=== PATIENT | female | born 2005 | race Caucasian/White ===

== ENCOUNTER 2023-05-29 11:58 | Emergency (ER) | payer BC, MEDICAID, SELFPAY ==
[2023-05-29 12:00] VITALS: BP 130/70; PULSE 90; RESP 16; TEMP 36.5; O2SAT 99
[2023-05-29 12:29] LABS: Appearance Urine Turbid (Clear); Bacteria Urine Rare /hpf; Bilirubin Urine Negative (Negative); Blood Urine 3+ (Negative); Color Urine Dark Yellow (Yellow); Glucose Urine UA Negative (Negative); Ketones Urine Trace mg/dL (Negative); Leukocyte Esterase Ur 2+ LEU/UL (Negative); Nitrate Urine Negative (Negative); Non Pathogenic Casts 0-2; Protein Urine 2+ mg/dL (Negative); RBC Urine >100 /hpf (0-2); Squamous Epithelial Cell Urine Few /hpf (Few); WBC Urine >100 /hpf; pH Urine 6.5 (5.0-9.0)
[2023-05-29 12:38] LABS: Add Urine Microscopic? YES
[2023-05-29] MEDS: SODIUM CHLORIDE 0.9% IV 1,000 ML 999 ML IV CONT (14:18)
[2023-05-29 14:25] LABS: Basophils Percent Auto 0.3 % (0.2-1.2); Eosinophils Absolute Auto 0.1 K/mm3 (0-0.3); Eosinophils Percent Auto 0.5 % (0-4.4); Hematocrit 40.5 % (37.0-47.0); Immature Granulocyte Absolute 0.02 K/mm3 (0.00-0.031); Immature Granulocyte Percent A 0.2 % (0-0.5); Lymphocytes Absolute Auto 1.68 K/mm3 (0.9-3.2); Lymphocytes Percent Auto 18.4 % (18.3-44.2); Mean Corpuscular HGB Conc 32.1 g/dl (32-36); Mean Corpuscular Hemoglobin 28.2 pg (26-34); Mean Corpuscular Volume 87.9 fl (80-100); Mean Platelet Volume 9.6 fl (7.4-10.4); Monocytes Absolute Auto 0.5 K/mm3 (0.1-0.6); Monocytes Percent Auto 5.5 % (2.6-8.5); Neutrophils Absolute Auto 6.9 K/mm3 (1.3-6.7); Neutrophils Percent Auto 75.1 % (45.5-73.1); Platelet Count Result 288 k/mm3 (150-375); Red Blood Count 4.61 M/mm3 (4.2-5.4); Red Cell Distribution Width 13.7 % (11.5-14.5); White Blood Count 9.1 K/mm3 (4.5-10.0)
[2023-05-29 14:46] LABS: Alanine Aminotransferase 15 U/L (6-35); Albumin Level 4.2 g/dL (3.7-5.6); Alkaline Phosphatase 118 U/L (45-116); Anion Gap 6 mmol/L (8-16); Aspartate Amino Transferase 28 U/L (14-36); Bilirubin,Total 0.6 mg/dL (0.2-1.3); Blood Urea Nitrogen 14 mg/dL (8-21); Calcium 9.2 mg/dL (8.9-10.7); Carbon Dioxide 23 mmol/L (22-30); Chloride 110 mmol/L (98-107); Estimated CRCL calculation 105 ml/min; Estimated Glomerular Filt Rate > 60; Glucose 95 mg/dL (65-110); Lipase 66 U/L (23-300); Potassium 4.4 mmol/L (3.4-5.0); Sodium 139 mmol/L (134-143)
--- NOTE | 2023-05-29 15:20 | ED.ABDPAIN ---
HPI - Abdominal Pain General Chief Complaint: Abdominal Pain Stated Complaint: severe abd pain Time Seen by Provider: 05/29/23 13:02 History of Present Illness HPI narrative: 17-year-old female presenting to the emergency for evaluation burning with urination. Patient states symptoms started a few days ago. Patient also does report intermittent upper abdominal pain associated with eating. Patient reports intermittent lower abdominal pain associated with intercourse. Related Data Allergies Allergy/AdvReac Type Severity Reaction Status Date / Time No Known Allergies Allergy Verified 05/29/23 11:59 Review of Systems Review of Systems: All systems reviewed & are unremarkable except as noted in HPI and below Exam Narrative: APPEARANCE: Well appearing, no pain, no distress, well-nourished. HEAD: normocephalic, atraumatic. EYES: PERRLA/EOMI, conjunctivae clear. NOSE: Normal no drainage EARS:TMS clear with good light reflex. THROAT: Pharynx clear, no exudate. NECK: Supple. No adenopathy, no masses. RESPIRATORY: Airway patent, respirations nonlabored. Clear to auscultation bilaterally, no rales, rhonchi, wheezing. CARDIOVASCULAR: Regular rate and rhythm without murmurs rubs or gallops. ABDOMINAL: Suprapubic tenderness to palpation MUSCULOSKELETAL: Moves all extremities. Strength/ROM intact, No edema, No calf tenderness. NEURO: Alert. Cranial nerves II through XII intact. Grossly intact SKIN: Warm, dry. Normal Color Course Course Emergency Course: Patient was treated for urinary tract infection and patient was comfortable with the plan for discharge home Vital Signs Vital signs: Vital Signs Temperature 97.7 F 05/29/23 12:00 Pulse Rate 90 05/29/23 12:00 Respiratory Rate 16 05/29/23 12:00 Blood Pressure 130/70 05/29/23 12:00 Pulse Oximetry 99 05/29/23 12:00 Oxygen Delivery Room Air 05/29/23 12:00 Temperature 97.7 F 05/29/23 12:00 Pulse Rate 90 05/29/23 12:00 Respiratory Rate 16 05/29/23 12:00 Blood Pressure 130/70 05/29/23 12:00 Pulse Oximetry 99 05/29/23 12:00 Oxygen Delivery Room Air 05/29/23 12:00 MDM - Abdominal Pain MDM Narrative Medical decision making narrative: 17-year-old female presenting to the ED for evaluation of burning with urination. Patient is afebrile with no leukocytosis and a stable hemoglobin of 13. No acute abnormalities on the CMP. UA is concerning for urinary tract infection. Patient was treated with IV fluids and IV Rocephin. Patient did feel improved after the rehydration. Patient was updated on results of her workup. All questions concerns were addressed patient was comfortable with the plan for discharge and close follow-up. Patient was advised to decrease her ibuprofen intake since she is also describing symptoms gastritis. Patient was encouraged close follow-up with GI. Differential Diagnosis Differential diagnosis: Likely abdominal pain, acute appendicitis, calculus of kidney, diverticulitis, gastroenteritis, pancreatitis and small bowel obstruction Lab Data Attestation: I reviewed the patient's lab results. 05/29/23 14:20 05/29/23 14:20 Labs: Lab Results 05/29/23 05/29/23 Range/Units 12:14 14:20 WBC 9.1 (4.5-10.0) K/mm3 RBC 4.61 (4.2-5.4) M/mm3 Hgb 13.0 (12.0-15.0) g/dL Hct 40.5 (37.0-47.0) % MCV 87.9 (80-100) fl MCH 28.2 (26-34) pg MCHC 32.1 (32-36) g/dl RDW 13.7 (11.5-14.5) % Plt Count 288 (150-375) k/mm3 MPV 9.6 (7.4-10.4) fl Immature Gran % (Auto) 0.2 (0-0.5) % Neut % (Auto) 75.1 H (45.5-73.1) % Lymph % (Auto) 18.4 (18.3-44.2) % [place] % (Auto) 5.5 (2.6-8.5) % Eos % (Auto) 0.5 (0-4.4) % Baso % (Auto) 0.3 (0.2-1.2) % Lymph # (Auto) 1.68 (0.9-3.2) K/mm3 [place] # (Auto) 0.5 (0.1-0.6) K/mm3 Eos # (Auto) 0.1 (0-0.3) K/mm3 Baso # (Auto) 0.0 (0.0-0.1) K/mm3 Abs Immat Gran (auto) 0.02 (0.00-0.031) K/mm3 Absolute
[2023-05-29] MEDS: PANTOPRAZOLE SODIUM IV 40 MG VIAL IV PUSH (15:31)
[2023-05-29] MEDS: PHENAZOPYRIDINE HCL 100 MG TABLET 200 MG PO (15:31)
== END 2023-05-29 15:37 | disposition home or self-care (01) ==
PROVIDERS: Emergency Provider Emergency Medicine
DX: N39.0 Urinary tract infection, site not specified (principal); K29.70 Gastritis, unspecified, without bleeding
CPT/HCPCS: 36415; 80053; 81001; 81025; 83690; 85025; 87077; 87086; 87186; 96361; 96365; 96375; 99284; A9270; C9113; J0696; J7030

== ENCOUNTER 2023-08-15 17:44 | Emergency (ER) | payer BC, SELFPAY ==
[2023-08-15] VITALS (8 sets, daily range): BP systolic 118–127; BP diastolic 77–88; PULSE 68–88; RESP 12–20; O2SAT 97–100
[2023-08-15 18:11] LABS: Appearance Urine Clear (Clear); Bilirubin Urine Negative (Negative); Blood Urine Negative (Negative); Color Urine Yellow (Yellow); Glucose Urine UA Negative (Negative); Ketones Urine Negative (Negative); Leukocyte Esterase Ur Negative LEU/UL (Negative); Nitrate Urine Negative (Negative); Protein Urine Negative (Negative); Specific Grav Ur 1.018 (1.001-1.035); pH Urine 7.5 (5.0-9.0)
[2023-08-15 18:15] LABS: Add Urine Microscopic? NO
--- NOTE | 2023-08-15 18:55 | ED.ABDPAIN ---
HPI - Abdominal Pain General Chief Complaint: Abdominal Pain Stated Complaint: abd pain Time Seen by Provider: 08/15/23 18:09 History of Present Illness HPI narrative: 18-year-old female with no past medical history presents to emergency department for intermittent abdominal cramping for approximately 2 months. Patient was evaluated in our emergency department for the same symptoms on 05/29/2023. She was found have urinary tract infection at that time and was started on antibiotics. She also he was started on omeprazole for gastritis like symptoms. Patient states she has been taking omeprazole without improvement. She states the pain is intermittent and sometimes in her upper abdomen and sometimes in her lower abdomen. She is unable to identify any aggravating or alleviating factors. She reports 1 episode of nausea and vomiting 1 week ago and some intermittent loose stools. Her last bowel movement was today and normal. She denies prior abdominal surgeries, obstipation, fever, dysuria or hematuria. LMP unknown given she is on the Depo shot. Upon my evaluation the patient states she has no pain or discomfort. Related Data Allergies Allergy/AdvReac Type Severity Reaction Status Date / Time No Known Allergies Allergy Verified 05/29/23 11:59 Review of Systems Review of Systems: CONSTITUTIONAL: Denies fever, chills, or sweats. EYES: Denies visual changes, redness, or discharge. ENT: Denies rhinorrhea, congestion, sore throat, or otalgia. CARDIOVASCULAR: Denies chest pain, palpitations, or edema. RESPIRATORY: Denies cough or dyspnea. GASTROINTESTINAL: See HPI GENITOURINARY: Denies dysuria or hematuria. SKIN: Denies rash or itching. MUSCULOSKELETAL: Denies back pain, joint pain, or myalgia. NEUROLOGIC: Denies headache, numbness, or weakness. PSYCHIATRIC: Denies anxiety or depression. Exam Narrative: GENERAL: Well-appearing, well-nourished, and in no acute distress. HEAD: Normocephalic, atraumatic. EYES: PERRLA and EOMI. ENT: Nares clear, no rhinorrhea or epistaxis. Mucous membranes moist. NECK: Supple. CHEST: Clear to auscultation. No respiratory distress. HEART: Regular rate and rhythm. No murmur heard. Normal peripheral pulses. ABDOMEN: Soft, nontender, nondistended, normal active bowel sounds. No rebound, guarding or rigidity. No CVA tenderness. EXTREMITIES: Normal range of motion. No edema. SKIN: Warm, dry, no rash. NEURO: No focal deficits. Alert and oriented x3 Course Vital Signs Vital signs: Vital Signs Pulse Rate 86 08/15/23 18:03 Respiratory Rate 18 08/15/23 18:03 Pulse Oximetry 100 08/15/23 18:03 Pulse Rate 88 08/15/23 19:01 Respiratory Rate 13 08/15/23 19:01 Blood Pressure 121/88 08/15/23 19:01 Pulse Oximetry 100 08/15/23 19:01 MDM - Abdominal Pain MDM Narrative Medical decision making narrative: 18-year-old female presents emergency department for intermittent abdominal cramping for approximately 2 months. Triage vitals stable. Patient is afebrile and nontoxic appearing. Abdomen is soft and nontender. She currently is not having any symptoms. Lab work obtained in triage reveals a negative test, normal urinalysis. CBC without leukocytosis. Chemistries unremarkable. Lipase is normal. On re-evaluation patient is resting comfortably in the exam bed and continues to be asymptomatic. Feel she is safe to be discharged home with PCP follow-up. Strict ED return precautions discussed. She is agreeable to plan verbalized understanding. Discharged in stable condition. Lab Data 08/15/23 19:21 08/15/23 19:21 Labs: Lab Results 08/15/23 08/15/23 Range/Units 18:04 19:21 WBC 5.9 (4.5-10.0) K/mm3 RBC 4.83 (4.2-5.4) M/mm3 Hgb 13.6 (12.0-15.0) g/dL Hct 42.1 (37.0-47.0) % MCV 87.2 (80-100) fl MCH 28.2 (26-34) pg MCHC 32.3 (32-36) g/dl RDW 13.2 (11.5-14.5) % Plt Count 327 (150-375) k/mm3
--- NOTE | 2023-08-15 19:13 | PC.NURSE ---
Report given to Valerie CARBALLO, all questions answered
[2023-08-15 19:31] LABS: Basophils Percent Auto 0.7 % (0.2-1.2); Eosinophils Absolute Auto 0.2 K/mm3 (0-0.3); Eosinophils Percent Auto 2.6 % (0-4.4); Hematocrit 42.1 % (37.0-47.0); Hemoglobin 13.6 g/dL (12.0-15.0); Immature Granulocyte Absolute 0.02 K/mm3 (0.00-0.031); Immature Granulocyte Percent A 0.3 % (0-0.5); Lymphocytes Absolute Auto 2.42 K/mm3 (0.9-3.2); Lymphocytes Percent Auto 41.2 % (18.3-44.2); Mean Corpuscular HGB Conc 32.3 g/dl (32-36); Mean Corpuscular Hemoglobin 28.2 pg (26-34); Mean Corpuscular Volume 87.2 fl (80-100); Mean Platelet Volume 9.6 fl (7.4-10.4); Monocytes Absolute Auto 0.4 K/mm3 (0.1-0.6); Neutrophils Absolute Auto 2.9 K/mm3 (1.3-6.7); Neutrophils Percent Auto 49.2 % (45.5-73.1); Platelet Count Result 327 k/mm3 (150-375); Red Blood Count 4.83 M/mm3 (4.2-5.4); Red Cell Distribution Width 13.2 % (11.5-14.5); White Blood Count 5.9 K/mm3 (4.5-10.0)
[2023-08-15 19:41] LABS: Alanine Aminotransferase 16 U/L (6-35); Albumin Level 4.5 g/dL (3.5-5.1); Alkaline Phosphatase 127 U/L (38-126); Anion Gap 9 mmol/L (4-12); Aspartate Amino Transferase 26 U/L (14-36); Bilirubin,Total 0.5 mg/dL (0.2-1.3); Blood Urea Nitrogen 10 mg/dL (7-17); Calcium 9.4 mg/dL (8.4-10.2); Carbon Dioxide 23 mmol/L (22-30); Chloride 108 mmol/L (98-107); Estimated CRCL calculation 94 ml/min; Estimated Glomerular Filt Rate > 60; Glucose 79 mg/dL (65-110); Lipase 75 U/L (23-300); Potassium 3.7 mmol/L (3.4-5.0); Sodium 140 mmol/L (137-145)
== END 2023-08-15 20:32 | disposition home or self-care (01) ==
PROVIDERS: Emergency Medicine; Emergency Provider Physician Assistant
DX: R10.9 Unspecified abdominal pain (principal)
CPT/HCPCS: 36415; 80053; 81003; 81025; 83690; 85025; 99283

== ENCOUNTER 2024-07-13 13:36 | Emergency (ER) | payer BC, SELFPAY ==
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
[2024-07-13 13:43] VITALS: BP 117/72; PULSE 87; RESP 16; TEMP 36.2; O2SAT 100
[2024-07-13 15:10] LABS: Basophils Percent Auto 0.6 % (0.2-1.2); Eosinophils Absolute Auto 0.2 K/mm3 (0-0.3); Eosinophils Percent Auto 3.6 % (0-4.4); Hematocrit 44.6 % (37.0-47.0); Hemoglobin 14.4 g/dL (12.0-15.0); Immature Granulocyte Absolute 0.01 K/mm3 (0.00-0.031); Immature Granulocyte Percent A 0.2 % (0-0.5); Lymphocytes Absolute Auto 1.76 K/mm3 (0.9-3.2); Lymphocytes Percent Auto 37.4 % (18.3-44.2); Mean Corpuscular HGB Conc 32.3 g/dl (32-36); Mean Corpuscular Hemoglobin 28.1 pg (26-34); Mean Corpuscular Volume 86.9 fl (80-100); Mean Platelet Volume 9.9 fl (7.4-10.4); Monocytes Absolute Auto 0.2 K/mm3 (0.1-0.6); Monocytes Percent Auto 3.2 % (2.6-8.5); Neutrophils Absolute Auto 2.6 K/mm3 (1.3-6.7); Platelet Count Result 362 k/mm3 (150-375); Red Blood Count 5.13 M/mm3 (4.2-5.4); Red Cell Distribution Width 13.9 % (11.5-14.5); White Blood Count 4.7 K/mm3 (4.5-10.0)
[2024-07-13 15:15] LABS: BEDSIDEPREGUCG Negative (Negative)
[2024-07-13 15:22] LABS: Alanine Aminotransferase 21 U/L (6-35); Albumin Level 4.9 g/dL (3.5-5.1); Alkaline Phosphatase 130 U/L (38-126); Anion Gap 13 mmol/L (4-12); Aspartate Amino Transferase 27 U/L (14-36); Bilirubin,Total 0.7 mg/dL (0.2-1.3); Blood Urea Nitrogen 4 mg/dL (7-17); Calcium 9.7 mg/dL (8.4-10.2); Carbon Dioxide 22 mmol/L (22-30); Chloride 106 mmol/L (98-107); Estimated CRCL calculation 106 ml/min; Estimated Glomerular Filt Rate > 60; Glucose 83 mg/dL (65-110); Lipase 45 U/L (23-300); Potassium 3.7 mmol/L (3.4-5.0); Sodium 141 mmol/L (137-145)
[2024-07-13 15:26] LABS: Add Urine Microscopic? YES; Appearance Urine Cloudy (Clear); Bacteria Urine 2+ /hpf; Bilirubin Urine Negative (Negative); Blood Urine Negative (Negative); Color Urine Yellow (Yellow); Glucose Urine UA Negative (Negative); Ketones Urine Negative (Negative); Leukocyte Esterase Ur Trace LEU/UL (Negative); Need Manual Microscopic Reviewed; Nitrate Urine Negative (Negative); Non Pathogenic Casts 0-2; Protein Urine Trace mg/dL (Negative); RBC Urine 0-2 /hpf (0-2); Specific Grav Ur 1.027 (1.001-1.035); Squamous Epithelial Cell Urine Moderate /hpf (Few); WBC Urine 21-50 /hpf (0-3)
[2024-07-13] MEDS: SODIUM CHLORIDE 0.9% IV 2,000 ML 999 ML IV CONT (15:43)
[2024-07-13] MEDS: ONDANSETRON INJ 4 MG/2 ML VIAL IV PUSH (15:44)
[2024-07-13 15:46] LABS: Influenza A QL RT-PCR Negative (Negative); Influenza B QL RT-PCR Negative (Negative); RSV RNA, RT-PCR Negative (Negative); SARS-CoV-2 RNA PCR Negative (Negative)
[2024-07-13 15:56] LABS: Thyroid Stimulating Hormone Reflex 0.989 uIU/mL (0.465-4.68)
[2024-07-13] MEDS: KETOROLAC 15 MG/ML VIAL (*BKC) IV PUSH (16:03)
--- NOTE | 2024-07-13 16:11 | ED.GENADULT ---
HPI - General Adult General Chief complaint: Nausea/Vomiting/Diarrhea Stated complaint: Abdominal pain, N/V/D, headache Time Seen by Provider: 07/13/24 14:32 History of Present Illness HPI narrative: This is a 19-year-old female presenting with lower abdominal pain, nausea diarrhea and headaches. Patient says that she has not had a period in 7 years due to being on Depo-Provera. She had her 1st. At last week which was the start of her symptoms. The bleeding has since resolved but she has continued to have bad abdominal cramps which are causing her to have headaches and nausea. Patient denies fevers chills chest pain difficulty breathing or urinary symptoms. Related Data Allergies Allergy/AdvReac Type Severity Reaction Status Date / Time No Known Allergies Allergy Verified 07/13/24 13:37 Exam Narrative: APPEARANCE: No apparent distress. Head: atraumatic. EYES: EOMI, NOSE: Atraumatic NECK: Trachea midline RESPIRATORY: No increased rate of breathing clear auscultation CARDIOVASCULAR: RRR, no peripheral edema ABDOMINAL: Non-distended, soft nontender no guarding rebound, no CVA tenderness MUSCULOSKELETAl: No obvious deformities NEURO: Alert. Moving 4/4 extremities SKIN:: Warm, dry. Normal color PSYCHIATRIC: Normal affect Course Vital Signs Vital signs: Vital Signs Temperature 97.2 F L 07/13/24 13:43 Pulse Rate 87 07/13/24 13:43 Respiratory Rate 16 07/13/24 13:43 Blood Pressure 117/72 07/13/24 13:43 Pulse Oximetry 100 07/13/24 13:43 Temperature 97.2 F L 07/13/24 13:43 Pulse Rate 87 07/13/24 13:43 Respiratory Rate 16 07/13/24 13:43 Blood Pressure 117/72 07/13/24 13:43 Pulse Oximetry 100 07/13/24 13:[address] [facility] Narrative Medical decision making narrative: -Course: 19-year-old female presenting with abdominal cramps headache and nausea after starting her period for the 1st time in several years. Physical exam is unremarkable vital signs are stable. Patient is given Toradol and Zofran with improvement. Urine was indicative infection and she has noted increased urinary frequency. She will be treated with a course of cephalexin. Patient has been instructed to follow-up with her OBGYN for further management. -DDX includes but is not limited to: Menstrual cramps, gastroenteritis, urinary tract infection Vital Signs Vital Signs: Vital Signs Temperature 97.2 F L 07/13/24 13:43 Pulse Rate 87 07/13/24 13:43 Respiratory Rate 16 07/13/24 13:43 Blood Pressure 117/72 07/13/24 13:43 Pulse Oximetry 100 07/13/24 13:43 Temperature 97.2 F L 07/13/24 13:43 Pulse Rate 87 07/13/24 13:43 Respiratory Rate 16 07/13/24 13:43 Blood Pressure 117/72 07/13/24 13:43 Pulse Oximetry 100 07/13/24 13:43 Lab Data 07/13/24 15:01 07/13/24 15:01 Labs: Lab Results 07/13/24 07/13/24 Range/Units 15:01 15:12 WBC 4.7 (4.5-10.0) K/mm3 RBC 5.13 (4.2-5.4) M/mm3 Hgb 14.4 (12.0-15.0) g/dL Hct 44.6 (37.0-47.0) % MCV 86.9 (80-100) fl MCH 28.1 (26-34) pg MCHC 32.3 (32-36) g/dl RDW 13.9 (11.5-14.5) % Plt Count 362 (150-375) k/mm3 MPV 9.9 (7.4-10.4) fl Immature Gran % (Auto) 0.2 (0-0.5) % Neut % (Auto) 55.0 (45.5-73.1) % Lymph % (Auto) 37.4 (18.3-44.2) % [place] % (Auto) 3.2 (2.6-8.5) % Eos % (Auto) 3.6 (0-4.4) % Baso % (Auto) 0.6 (0.2-1.2) % Lymph # (Auto) 1.76 (0.9-3.2) K/mm3 [place] # (Auto) 0.2 (0.1-0.6) K/mm3 Eos # (Auto) 0.2 (0-0.3) K/mm3 Baso # (Auto) 0.0 (0.0-0.1) K/mm3 Abs Immat Gran (auto) 0.01 (0.00-0.031) K/mm3 Absolute Neuts (auto) 2.6 (1.3-6.7) K/mm3 Absolute Nucleated RBC 0.000 (0.0-0.012) K/mm3 Nucleated RBC % 0.0 (0.0-0.2) % Sodium 141 (137-145) mmol/L Potassium 3.7 (3.4-5.0) mmol/L Chloride 106 (98-107) mmol/L Carbon Dioxide 22 (22-30) mmol/L Anion Gap 13 H (4-12) mmol/L BUN 4 L D (7-17) mg/dL Creatinine 0.79 (0.7-1.0) mg/dL Estim Creat Clear Calc 106 ml/min Estimated GFR > 60 (59 - ) Glucose 83 (65-110) mg/dL Calcium 9.7 (8.4-10.2) mg/dL Total Bilirubin 0.7 (0.2-1.3) mg/dL AST 27 (14-36) U/L ALT 21 (6-35) U/L Alkaline Phosphatase 130 H (38-126) U/L Total Protein 9.0 H (6.3-8.2) g/dL Albumin 4.9 (3.5-5.1) g/dL Lipase 45 (23-300) U/L TSH (Reflex) 0.989 (0.465-4.68) uIU/mL Urine Color Yellow (Yellow) Urine Appearance Cloudy H (Clear) Urine pH 7.0 (5.0-9.0) Ur Specific [place] 1.027 (1.001-1.035) Urine Protein Trace (Negative) mg/dL Urine Glucose (UA) Negative (Negative) mg/dL Urine Ketones Negative (Negative) mg/dL Ur Blood (Man) Negative (Negative) Urine Nitrate Negative (Negative) Urine Bilirubin Negative (Negative) Urine Urobilinogen 1.0 (<2.0) mg/dL Add Ur Microanalysis Reviewed Leukocyte Esterase Rfl Trace H (Negative) ALFONZO/UL Urine RBC 0-2 (0-2) /hpf Urine WBC 21-50 H (0-3) /hpf Ur Squamous Epith Cells Moderate (Few) /hpf Urine Bacteria 2+ H /hpf Urine Casts 0-2 POC Urine HCG, Qual Negative (Negative) Influenza A (RT-PCR) Negative (Negative) Influenza B (RT-PCR) Negative (Negative) RSV (RT-PCR) Negative (Negative) SARS-CoV-2 RNA (RT-PCR) Negative (Negative) Discharge Plan Discharge Clinical Impression: UTI (urinary tract infection), Abdominal cramping Patient Disposition: Home Condition: Stable Instructions: Antibiotic Form, Urinary Tract Infection in Women (DC), Abdominal Pain (ED) Additional Instructions: You were seen in the emergency department for abdominal cramps. Please use Motrin for abdominal pain. Please complete a course of Keflex for UTI. Please follow-up with your OBGYN for further management. Return to ED if you develop any new or worsening symptoms. Patient Language: Croatian Prescriptions: New cephalexin 500 mg capsule 500 mg PO Q12H Qty: 10 0RF No Action phenazopyridine [Pyridium] 100 mg tablet 100 mg PO TID PRN (Reason: pain) Qty: 6 0RF cephalexin 500 mg capsule 500 mg PO Q8H 7 Days Qty: 21 0RF omeprazole 20 mg capsule,delayed release(DR/EC) 20 mg PO DAILY Qty: 14 0RF Follow-up/Referrals: Kerry Bright DO [Primary Care Provider] -
[2024-07-13 16:33] VITALS: BP 126/74; PULSE 74; RESP 16; TEMP 36.6; O2SAT 100
== END 2024-07-13 16:35 | disposition home or self-care (01) ==
PROVIDERS: Registered Nurse; Emergency Provider Emergency Medicine; PCP Family Medicine
DX: N39.0 Urinary tract infection, site not specified (principal); R10.30 Lower abdominal pain, unspecified; Z20.822 Contact with and (suspected) exposure to COVID-19
CPT/HCPCS: 36415; 80053; 81001; 81025; 83690; 84443; 85025; 87637; 96361; 96374; 96375; 99284; J1885; J2405; J7030